=== PATIENT | female | born 1980 | race Caucasian/White ===

== ENCOUNTER 2017-06-20 14:17 | Emergency (ER) | payer MEDICAID ==
[~2017-06-20] VITALS: Ht 177.8 cm; Wt 77.0 kg
[~2017-06-20 14:17] MED LIST: AZAT50TA18 PO; COLC0.6T69 PO; DICL50TA8 PO; DIPH1TAB PO; LAMO200T2 PO; PROP10TA10 PO; ZOLP10TA PO
[2017-06-20] MEDS ORDERED: normal saline 1000ML IV soln IVB ONE (15:15)
[2017-06-20] MEDS ORDERED: ondansetron/PF 4mg/2ml inj IV ONE (15:15)
[2017-06-20] MEDS ORDERED: HYDROmorphone 1 mg/ml syringe IV PRN (15:15)
[2017-06-20] MEDS ORDERED: iohexol 300mg/ml 100ml inj. ONE (15:20)
[2017-06-20] MEDS ORDERED: clindamycin-Cleocin 900mg/D5W 50 ML IV ONE (16:15)
[2017-06-20] MEDS ORDERED: normal saline 1000ML IV soln IV ONE (16:15)
[2017-06-20] MEDS ORDERED: LIDOcaine Viscous 15ml cup MM STA (16:56)
[2017-06-20 17:03] LABS: BASOPHILS % (AUTO) 0.1 % (0-1); EOSINOPHILS # (AUTO) 0.5 X10'3 (0-0.9); EOSINOPHILS % (AUTO) 3.2 % (0-6); HEMATOCRIT 39.5 % (35.0-45.0); HEMOGLOBIN 14.1 g/dl (12.0-16.0); LYMPHOCYTES # (AUTO) 2.2 X10'3 (1.1-4.8); LYMPHOCYTES % (AUTO) 13.4 % (21-51); MEAN CORPUSCULAR HEMOGLOBIN 32.1 PG (27.0-31.0); MEAN CORPUSCULAR HGB CONC 35.7 % (33.0-36.5); MEAN CORPUSCULAR VOLUME 89.9 FL (78-98); MEAN PLATELET VOLUME 7.5 FL (7.4-10.4); MONOCYTES % (AUTO) 6.1 % (2-12); NEUTROPHILS # (AUTO) 12.4 X10'3 (1.8-7.7); NEUTROPHILS % (AUTO) 77.2 % (42-75); PLATELET COUNT 353 X10'3 (140-440); WHITE BLOOD COUNT 16.1 X10'3 (4.5-11.0)
[2017-06-20 17:25] LABS: ALANINE AMINOTRANSFERASE 20 U/L (12-78); ALBUMIN 3.9 G/DL (3.4-5.0); ALBUMIN/GLOBULIN RATIO 0.8 (1.1-1.5); ALKALINE PHOSPHATASE 76 IU/L (46-116); ANION GAP 10 (8-16); ASPARTATE AMINO TRANSFERASE 9 U/L (10-37); BILIRUBIN,TOTAL 0.4 MG/DL (0.1-1.0); BLOOD UREA NITROGEN 10 MG/DL (7-18); BUN/CREATININE RATIO 14.3 (6.6-38.0); CALCIUM 9.2 MG/DL (8.5-10.1); CHLORIDE 101 MMOL/L (99-107); GLUCOSE 94 MG/DL (70-104); POTASSIUM 3.8 MMOL/L (3.5-5.1); SODIUM 140 MMOL/L (135-145); TOTAL CARBON DIOXIDE 28.6 MMOL/L (24-32); TOTAL PROTEIN 8.5 G/DL (6.4-8.2); eGFR > 90 ML/MIN
[2017-06-20 19:08] VITALS: BP 137/90
== END 2017-06-20 19:11 | disposition short-term general hospital (02) ==
LOC: ER 14:18
DX: J03.80 Acute tonsillitis due to other specified organisms (principal); K12.2 Cellulitis and abscess of mouth; M35.2 Behcet's disease; G43.909 Migraine, unspecified, not intractable, without status migrainosus; J45.909 Unspecified asthma, uncomplicated; Z87.442 Personal history of urinary calculi; I49.9 Cardiac arrhythmia, unspecified; Z88.0 Allergy status to penicillin; Z88.2 Allergy status to sulfonamides; Z88.8 Allergy status to other drugs, medicaments and biological substances; Z88.4 Allergy status to anesthetic agent; Z88.1 Allergy status to other antibiotic agents; Z91.040 Latex allergy status
CPT/HCPCS: 36415; 70491; 80053; 83605; 84145; 85025; 87040; 96365; 96375; 96376; 99285; J2270; J2405; J3490; J7030; Q9967

== ENCOUNTER 2017-11-27 11:43 | Emergency (ER) | payer MEDICAID ==
[~2017-11-27] VITALS: Ht 170.2 cm; Wt 80.0 kg
[2017-11-27 12:11] LABS: URINE HCG NEGATIVE (NEG)
[2017-11-27 12:14] LABS: CLARITY,URINE CLEAR (Clear); COLOR,URINE YELLOW (Yellow); GLUCOSE, URINE NEGATIVE (Neg); KETONES,URINE NEGATIVE (Neg); LEUKOCYTE ESTERASE ,URINE NEGATIVE (Neg); NITRITES, URINE NEGATIVE (Neg); OCCULT BLOOD,URINE MODERATE (Neg); PH,URINE 5.5 (4.8-8.0); PROTEIN,URINE NEGATIVE (Neg); UROBILINOGEN,URINE 0.2 E.U/dL (0.2-1.0)
[2017-11-27 12:20] LABS: UA COLLECTION TYPE CLN CATCH MIDSTREAM
[2017-11-27] MEDS ORDERED: normal saline 1000ML IV soln IVB ONE (12:20)
[2017-11-27 12:21] LABS: BACTERIA,URINE FEW /HPF (Neg); RBC,URINE 0-2 /HPF (0-2); SQUAMOUS EPITHELIAL CELL,UR FEW /LPF (FEW); WBC,URINE 0-4 /HPF (0-4)
[2017-11-27 12:29] LABS: PROTHROMBIN TIME 10.2 SECONDS (9.0-12.0)
[2017-11-27 12:31] LABS: BASOPHILS % (AUTO) 0.4 % (0-1); EOSINOPHILS # (AUTO) 0.5 X10'3 (0-0.9); EOSINOPHILS % (AUTO) 5.6 % (0-6); HEMATOCRIT 41.6 % (35.0-45.0); HEMOGLOBIN 14.5 g/dl (12.0-16.0); LYMPHOCYTES # (AUTO) 1.8 X10'3 (1.1-4.8); LYMPHOCYTES % (AUTO) 22.5 % (21-51); MEAN CORPUSCULAR HEMOGLOBIN 31.7 PG (27.0-31.0); MEAN CORPUSCULAR HGB CONC 34.9 % (33.0-36.5); MEAN CORPUSCULAR VOLUME 90.7 FL (78-98); MEAN PLATELET VOLUME 8.6 FL (7.4-10.4); MONOCYTES # (AUTO) 0.6 X10'3 (0-0.9); MONOCYTES % (AUTO) 7.3 % (2-12); NEUTROPHILS # (AUTO) 5.2 X10'3 (1.8-7.7); NEUTROPHILS % (AUTO) 64.2 % (42-75); PLATELET COUNT 292 X10'3 (140-440); RED BLOOD COUNT 4.59 X10'6 (4.20-5.60); RED CELL DISTRIBUTION WIDTH 12.1 % (11.5-14.5); WHITE BLOOD COUNT 8.1 X10'3 (4.5-11.0)
[2017-11-27] MEDS ORDERED: HYDROcodone/acetaminophen 10/325mg tab PO ONE (12:35)
[2017-11-27 12:38] LABS: ALANINE AMINOTRANSFERASE 25 U/L (12-78); ALBUMIN 4.1 G/DL (3.4-5.0); ALKALINE PHOSPHATASE 68 IU/L (46-116); ANION GAP 11 (8-16); ASPARTATE AMINO TRANSFERASE 14 U/L (10-37); BILIRUBIN,TOTAL 0.3 MG/DL (0.1-1.0); BLOOD UREA NITROGEN 14 MG/DL (7-18); BUN/CREATININE RATIO 18.4 (6.6-38.0); CALCIUM 9.1 MG/DL (8.5-10.1); CHLORIDE 104 MMOL/L (99-107); CREATININE 0.76 MG/DL (0.40-0.90); GLUCOSE 125 MG/DL (70-104); POTASSIUM 3.6 MMOL/L (3.5-5.1); SODIUM 137 MMOL/L (135-145); TOTAL CARBON DIOXIDE 21.7 MMOL/L (24-32); TOTAL PROTEIN 8.3 G/DL (6.4-8.2); eGFR 87 ML/MIN
[2017-11-27] MEDS ORDERED: morphine 4 MG/ML inj SYRINge IV ONE ×2 (13:20→14:30)
[2017-11-27 13:49] VITALS: BP 123/83
[2017-11-27] MEDS ORDERED: ONDA4TAB6 PO (14:59)
[2017-11-27] MEDS ORDERED: HYDR-3965 PO (14:59)
[2017-11-27] MEDS ORDERED: LORazepam 2 mg/ml vial IV ONE (15:10)
== END 2017-11-27 15:44 | disposition home or self-care (01) ==
LOC: ER 11:43
DX: N23 Unspecified renal colic (principal); G43.909 Migraine, unspecified, not intractable, without status migrainosus; J45.909 Unspecified asthma, uncomplicated; Z88.0 Allergy status to penicillin; Z88.1 Allergy status to other antibiotic agents; Z88.2 Allergy status to sulfonamides; Z91.040 Latex allergy status; Z88.8 Allergy status to other drugs, medicaments and biological substances; Z79.899 Other long term (current) drug therapy
CPT/HCPCS: 36415; 71045; 74176; 80053; 81001; 81025; 84443; 85025; 85610; 96361; 96374; 96375; 96376; 99285; J2060; J2270; J7030

== ENCOUNTER 2018-10-30 08:39 | Emergency (ER) | payer MEDICAID ==
[~2018-10-30] VITALS: Ht 167.6 cm; Wt 82.6 kg
[~2018-10-30 08:39] MED LIST changes: +ONDA4TAB6 PO
[2018-10-30] MEDS ORDERED: HYDROcodone/acetaminophen 10/325mg tab PO ONE (09:20)
--- NOTE | 2018-10-30 09:30 | NUR ---
WHEN ASKED TO PROVIDE A URINE SAMPLE, PATIENT STATED THAT A SAMPLE MAY BE "A PROBLEM BECAUSE I HAVE NO CONTROL OVER MY BOWEL OR BLADDER" OXANA STATES THAT SHE SEES DR SUTTON AT [facility] FOR THIS PROBLEM BUT CURRENTLY HAS "NO DIAGNOSIS FOR THIS PROBELME THAT STARTED AUGUST 03, 2018. I HAVE NO SENSATION THAT IT WILL HAPPEN, IT JUST COMES OUT."
[2018-10-30 09:41] LABS: BASOPHILS % (AUTO) 0.6 % (0-1); EOSINOPHILS # (AUTO) 0.8 X10'3 (0-0.9); EOSINOPHILS % (AUTO) 12.2 % (0-6); HEMATOCRIT 37.7 % (35.0-45.0); LYMPHOCYTES # (AUTO) 1.7 X10'3 (1.1-4.8); LYMPHOCYTES % (AUTO) 25.6 % (21-51); MEAN CORPUSCULAR HEMOGLOBIN 30.2 PG (27.0-31.0); MEAN CORPUSCULAR HGB CONC 34.3 g/dL (33.0-36.5); MEAN CORPUSCULAR VOLUME 87.9 FL (78-98); MONOCYTES # (AUTO) 0.5 X10'3 (0-0.9); NEUTROPHILS # (AUTO) 3.6 X10'3 (1.8-7.7); NEUTROPHILS % (AUTO) 53.6 % (42-75); PLATELET COUNT 305 X10'3 (140-440); RED BLOOD COUNT 4.29 X10'6 (4.20-5.60); RED CELL DISTRIBUTION WIDTH 12.8 % (11.5-14.5); WHITE BLOOD COUNT 6.7 X10'3 (4.5-11.0)
[2018-10-30 10:04] LABS: ALANINE AMINOTRANSFERASE 39 U/L (12-78); ALBUMIN 3.8 G/DL (3.4-5.0); ALBUMIN/GLOBULIN RATIO 1.1 (1.1-1.5); ALKALINE PHOSPHATASE 56 IU/L (46-116); ANION GAP 11 (8-16); ASPARTATE AMINO TRANSFERASE 19 U/L (10-37); BILIRUBIN,TOTAL 0.1 MG/DL (0.1-1.0); BLOOD UREA NITROGEN 16 MG/DL (7-18); BUN/CREATININE RATIO 16.3 (6.6-38.0); CHLORIDE 109 MMOL/L (99-107); CREATININE 0.98 MG/DL (0.40-0.90); GLUCOSE 110 MG/DL (70-104); POTASSIUM 3.3 MMOL/L (3.5-5.1); SODIUM 140 MMOL/L (135-145); TOTAL CARBON DIOXIDE 19.8 MMOL/L (24-32); TOTAL PROTEIN 7.3 G/DL (6.4-8.2); eGFR 64 ML/MIN
[2018-10-30 10:16] LABS: URINE HCG NEGATIVE (NEG)
[2018-10-30 10:17] LABS: CLARITY,URINE CLEAR (Clear); COLOR,URINE YELLOW (Yellow); GLUCOSE, URINE NEGATIVE (Neg); KETONES,URINE NEGATIVE (Neg); LEUKOCYTE ESTERASE ,URINE NEGATIVE (Neg); NITRITES, URINE NEGATIVE (Neg); OCCULT BLOOD,URINE NEGATIVE (Neg); PROTEIN,URINE NEGATIVE (Neg); UROBILINOGEN,URINE 0.2 E.U/dL (0.2-1.0)
[2018-10-30 10:18] LABS: UA COLLECTION TYPE STRAIGHT CATH
[2018-10-30] MEDS ORDERED: AZIT250T83 PO (10:39)
[2018-10-30 10:49] VITALS: BP 101/61
== END 2018-10-30 10:51 | disposition home or self-care (01) ==
LOC: ER 08:41
DX: H66.91 Otitis media, unspecified, right ear (principal); M79.7 Fibromyalgia; R21 Rash and other nonspecific skin eruption; R05 Cough; G43.909 Migraine, unspecified, not intractable, without status migrainosus; I49.9 Cardiac arrhythmia, unspecified; I10 Essential (primary) hypertension; J45.909 Unspecified asthma, uncomplicated; Z87.442 Personal history of urinary calculi; Z98.890 Other specified postprocedural states; Z88.0 Allergy status to penicillin; Z88.2 Allergy status to sulfonamides; Z88.1 Allergy status to other antibiotic agents; Z88.8 Allergy status to other drugs, medicaments and biological substances; Z91.040 Latex allergy status; Z79.899 Other long term (current) drug therapy
CPT/HCPCS: 36415; 80053; 81003; 81025; 85025; 87081; 87880; 99283

== ENCOUNTER 2018-12-27 12:18 | Outpatient (CLI) | payer MEDICAID | END 2018-12-27 23:59 | disposition home or self-care (01) | LOC: RAD 12:18 | PROVIDERS: ATTEND Psychiatry & Neurology Neurology | DX: G40.209 Localization-related (focal) (partial) symptomatic epilepsy and epileptic syndromes with complex partial seizures, not intractable, without status epilepticus (principal); I10 Essential (primary) hypertension; F17.200 Nicotine dependence, unspecified, uncomplicated | CPT/HCPCS: 95816 ==

== ENCOUNTER 2019-01-17 10:22 | Emergency (ER) | payer MEDICAID ==
[~2019-01-17] VITALS: Ht 167.6 cm; Wt 81.0 kg
[2019-01-17] MEDS ORDERED: HYDROcodone/acetaminophen 5mg/325mg tablet PO ONE (12:00)
[2019-01-17 12:14] LABS: BASOPHILS % (AUTO) 0.5 % (0-1); EOSINOPHILS # (AUTO) 0.5 X10'3 (0-0.9); EOSINOPHILS % (AUTO) 6.5 % (0-6); HEMATOCRIT 39.2 % (35.0-45.0); HEMOGLOBIN 13.7 g/dl (12.0-16.0); LYMPHOCYTES # (AUTO) 2.7 X10'3 (1.1-4.8); LYMPHOCYTES % (AUTO) 33.3 % (21-51); MEAN CORPUSCULAR HEMOGLOBIN 30.6 PG (27.0-31.0); MEAN CORPUSCULAR VOLUME 87.6 FL (78-98); MEAN PLATELET VOLUME 7.9 FL (7.4-10.4); MONOCYTES # (AUTO) 0.7 X10'3 (0-0.9); MONOCYTES % (AUTO) 8.6 % (2-12); NEUTROPHILS # (AUTO) 4.1 X10'3 (1.8-7.7); NEUTROPHILS % (AUTO) 51.1 % (42-75); PLATELET COUNT 288 X10'3 (140-440); RED BLOOD COUNT 4.48 X10'6 (4.20-5.60); RED CELL DISTRIBUTION WIDTH 12.4 % (11.5-14.5); WHITE BLOOD COUNT 8.1 X10'3 (4.5-11.0)
[2019-01-17 12:26] LABS: ALANINE AMINOTRANSFERASE 31 U/L (12-78); ALBUMIN 4.1 G/DL (3.4-5.0); ALBUMIN/GLOBULIN RATIO 1.1 (1.1-1.5); ALKALINE PHOSPHATASE 58 IU/L (46-116); ANION GAP 11 (8-16); ASPARTATE AMINO TRANSFERASE 13 U/L (10-37); BILIRUBIN,TOTAL 0.3 MG/DL (0.1-1.0); BLOOD UREA NITROGEN 24 MG/DL (7-18); BUN/CREATININE RATIO 29.6 (6.6-38.0); CALCIUM 8.7 MG/DL (8.5-10.1); CHLORIDE 108 MMOL/L (99-107); CREATININE 0.81 MG/DL (0.40-0.90); GLUCOSE 98 MG/DL (70-104); LIPASE 111 U/L (73-393); POTASSIUM 3.6 MMOL/L (3.5-5.1); SODIUM 140 MMOL/L (135-145); TOTAL CARBON DIOXIDE 20.9 MMOL/L (24-32); TOTAL PROTEIN 7.8 G/DL (6.4-8.2); eGFR 80 ML/MIN
[2019-01-17 12:50] LABS: URINE HCG NEGATIVE (NEG)
[2019-01-17 12:51] LABS: CLARITY,URINE CLEAR (Clear); COLOR,URINE YELLOW (Yellow); GLUCOSE, URINE NEGATIVE (Neg); KETONES,URINE TRACE mg/dl (Neg); LEUKOCYTE ESTERASE ,URINE NEGATIVE (Neg); NITRITES, URINE NEGATIVE (Neg); OCCULT BLOOD,URINE TRACE-INTACT (Neg); PROTEIN,URINE NEGATIVE (Neg); UA COLLECTION TYPE CLN CATCH MIDSTREAM; UROBILINOGEN,URINE 0.2 E.U/dL (0.2-1.0)
[2019-01-17 12:56] LABS: HYALINE CASTS 0-3 /LPF (NEGATIVE); MUCUS STRANDS FEW /LPF (Neg); SQUAMOUS EPITHELIAL CELL,UR MODERATE /LPF (FEW)
[2019-01-17 12:57] LABS: BACTERIA,URINE 1+ /HPF (Neg); RBC,URINE 0-2 /HPF (0-2); WBC,URINE 0-4 /HPF (0-4)
[2019-01-17] MEDS ORDERED: iohexol 300mg/ml 100ml inj. ONE (13:46)
[2019-01-17] MEDS ORDERED: ketorolac trometh inj. 60 MG/2 ML VIAL IM ONE (15:10)
[2019-01-17] MEDS ORDERED: ketorolac tromethamine 15mg/ml inj. IV ONE (15:30)
[2019-01-17 16:06] VITALS: BP 135/84
== END 2019-01-17 16:06 | disposition home or self-care (01) ==
LOC: ER 10:23
DX: K62.5 Hemorrhage of anus and rectum (principal); G43.909 Migraine, unspecified, not intractable, without status migrainosus; I10 Essential (primary) hypertension; J45.909 Unspecified asthma, uncomplicated; M79.7 Fibromyalgia; R06.02 Shortness of breath; Z87.442 Personal history of urinary calculi; Z98.890 Other specified postprocedural states; Z88.0 Allergy status to penicillin; Z88.1 Allergy status to other antibiotic agents; Z88.2 Allergy status to sulfonamides; Z91.040 Latex allergy status; Z79.899 Other long term (current) drug therapy
CPT/HCPCS: 36415; 74177; 80053; 81001; 81025; 83690; 83735; 85025; 99284; J1885; Q9967

== ENCOUNTER 2019-07-08 09:17 | Day surgery (SDC) | payer MEDICAID ==
[2019-07-08] VITALS (8 sets, daily range): BP systolic 98–124; BP diastolic 61–84
[~2019-07-08] VITALS: Ht 170.2 cm; Wt 83.4 kg
[2019-07-08] MEDS ORDERED: normal saline 1,000 ML IV SCH (09:40)
[2019-07-08] MEDS ORDERED: diphenhydrAMINE 25mg capsule PO PRN (09:40)
[2019-07-08] MEDS ORDERED: ASPI-611 PO (10:06)
[2019-07-08] MEDS ORDERED: TOPI200T PO (10:06)
[2019-07-08] MEDS ORDERED: PREG50CA PO (10:07)
[2019-07-08] MEDS ORDERED: PRAZ2CAP2 PO (10:07)
[2019-07-08] MEDS ORDERED: LISI10TA4 PO (10:07)
[2019-07-08] MEDS ORDERED: NITR0.4T SL (10:07)
[2019-07-08] MEDS ORDERED: DIVA500T9 PO (10:07)
[2019-07-08] MEDS ORDERED: LORA10CA PO (10:07)
[2019-07-08] MEDS ORDERED: QUET200T PO (10:07)
[2019-07-08] MEDS ORDERED: CHOL500061 PO (10:07)
[2019-07-08] MEDS ORDERED: LIDOcaine 1% (10mg/ml)w/preservative injection 20ml MDV ONE (10:29)
[2019-07-08] MEDS ORDERED: heparin 1,000unit/ml 10ml vial 10 ML ONE (10:29)
[2019-07-08] MEDS ORDERED: fentaNYL/PF 50MCG/1 ML 2ML syringe ONE (10:29)
[2019-07-08] MEDS ORDERED: verapamil 2.5 mg/ml inj IV ONE (10:29)
[2019-07-08] MEDS ORDERED: iohexol 350 MG/ML 50ML vial IV ONE (10:29)
[2019-07-08] MEDS ORDERED: nitroGLYCERIN-Tridil 50MG/D5W 250 ML IV ONE (10:29)
[2019-07-08] MEDS ORDERED: midazolam 2 mg/2 ml injection ONE ×4 (10:29→11:14)
[2019-07-08] MEDS ORDERED: iohexol 350MG/ML 100ml bottle IV ONE (10:30)
[2019-07-08 10:40] LABS: BASOPHILS # (AUTO) 0.1 X10'3 (0-0.2); EOSINOPHILS # (AUTO) 0.6 X10'3 (0-0.9); EOSINOPHILS % (AUTO) 5.9 % (0-6); HEMATOCRIT 43.2 % (35.0-45.0); HEMOGLOBIN 15.1 g/dl (12.0-16.0); LYMPHOCYTES # (AUTO) 2.7 X10'3 (1.1-4.8); LYMPHOCYTES % (AUTO) 28.2 % (21-51); MEAN CORPUSCULAR HEMOGLOBIN 31.6 PG (27.0-31.0); MEAN CORPUSCULAR HGB CONC 34.9 g/dL (33.0-36.5); MEAN CORPUSCULAR VOLUME 90.4 FL (78-98); MEAN PLATELET VOLUME 8.9 FL (7.4-10.4); MONOCYTES # (AUTO) 0.5 X10'3 (0-0.9); MONOCYTES % (AUTO) 5.6 % (2-12); NEUTROPHILS # (AUTO) 5.7 X10'3 (1.8-7.7); NEUTROPHILS % (AUTO) 59.3 % (42-75); PLATELET COUNT 340 X10'3 (140-440); RED BLOOD COUNT 4.78 X10'6 (4.20-5.60); RED CELL DISTRIBUTION WIDTH 13.5 % (11.5-14.5); WHITE BLOOD COUNT 9.7 X10'3 (4.5-11.0)
[2019-07-08 10:52] LABS: ALBUMIN 4.6 G/DL (3.4-5.0); ANION GAP 14 (8-16); BLOOD UREA NITROGEN 14 MG/DL (7-18); BUN/CREATININE RATIO 17.9 (6.6-38.0); CALCIUM 9.2 MG/DL (8.5-10.1); CHLORIDE 109 MMOL/L (99-107); CREATININE 0.78 MG/DL (0.40-0.90); GLUCOSE 114 MG/DL (70-104); POTASSIUM 3.4 MMOL/L (3.5-5.1); SODIUM 143 MMOL/L (135-145); TOTAL CARBON DIOXIDE 20.2 MMOL/L (24-32); eGFR 83 ML/MIN
[2019-07-08] MEDS ORDERED: proCHLORperazine 10 MG/2 ml inj ONE (10:58)
[2019-07-08] MEDS ORDERED: HYDROmorphone 1 mg/ml syringe ONE (11:03)
[2019-07-08] MEDS ORDERED: HYDROcodone/acetaminophen 5mg/325mg tablet PO PRN (11:55)
[2019-07-08] MEDS ORDERED: ketorolac tromethamine 15mg/ml inj. IV ONE (11:55)
[2019-07-08] MEDS ORDERED: normal saline 1000ml 1,000 ML IV SCH (11:55)
[2019-07-08] MEDS ORDERED: HYDROcodone/acetaminophen 10/325mg tab PO PRN (11:55)
== END 2019-07-08 15:00 | disposition home or self-care (01) ==
LOC: SSTAY O 09:17
PROVIDERS: ATTEND Internal Medicine Cardiovascular Disease
DX: R94.39 Abnormal result of other cardiovascular function study (principal); G40.909 Epilepsy, unspecified, not intractable, without status epilepticus; Z79.01 Long term (current) use of anticoagulants; Z79.899 Other long term (current) drug therapy
CPT/HCPCS: 36415; 80048; 83735; 85025; 85610; 93005; 93454; 99152; 99153; J0780; J1170; J1644; J1885; J2001; J2250; J3010; J7030; Q0163; Q9967; A4620; J3490

== ENCOUNTER 2019-07-31 07:29 | Emergency (ER) | payer MEDICAID ==
[~2019-07-31] VITALS: Ht 167.6 cm; Wt 83.4 kg
[~2019-07-31 07:29] MED LIST changes: +ASPI-611 PO; -AZAT50TA18 PO; +CHOL500061 PO; -COLC0.6T69 PO; -DIPH1TAB PO; +DIVA500T9 PO; -LAMO200T2 PO; +LISI10TA4 PO; +LORA10CA PO; +NITR0.4T SL; -ONDA4TAB6 PO; +PRAZ2CAP2 PO; +PREG50CA PO; +QUET200T PO; +TOPI200T PO
--- NOTE | 2019-07-31 08:06 | NUR ---
PT AMBULATORY TO XRAY WITH TECH NOW PER ORDERS. WILL OBTAIN FLU SWAB SAMPLE UPON PT RETURN TO BED 16
--- NOTE | 2019-07-31 08:50 | NUR ---
DR NSAH NOTIFIED OF PT PAIN AND REQUEST OF PAIN MEDICATION
[2019-07-31] MEDS ORDERED: dexamethasone sod phosphate 10mg/ml inj IV STA (08:57)
[2019-07-31] MEDS ORDERED: ketorolac tromethamine 15mg/ml inj. IV ONE (09:00)
[2019-07-31] MEDS ORDERED: albuterol 2.5 MG/3 ML nebule NEB ONE (09:00)
[2019-07-31] MEDS ORDERED: ALB0.5UD IH (10:12)
[2019-07-31] MEDS ORDERED: NAPR-56 PO (10:17)
[2019-07-31 10:31] VITALS: BP 109/60
== END 2019-07-31 10:34 | disposition home or self-care (01) ==
LOC: ER 07:29
DX: B34.9 Viral infection, unspecified (principal); R05 Cough; R50.9 Fever, unspecified; R09.81 Nasal congestion; G89.29 Other chronic pain; M54.9 Dorsalgia, unspecified; I10 Essential (primary) hypertension; J45.909 Unspecified asthma, uncomplicated; Z98.890 Other specified postprocedural states; Z88.0 Allergy status to penicillin; Z88.1 Allergy status to other antibiotic agents; Z88.2 Allergy status to sulfonamides; Z91.040 Latex allergy status; Z88.8 Allergy status to other drugs, medicaments and biological substances; Z79.82 Long term (current) use of aspirin; Z79.899 Other long term (current) drug therapy
CPT/HCPCS: 71046; 87502; 87503; 94640; 96374; 96375; 99284; J1100; J1885; 94760

== ENCOUNTER 2020-03-05 05:45 | Inpatient (IN) | payer MEDICAID ==
[2020-02-27 15:46] LABS: BASOPHILS % (AUTO) 0.5 % (0-1); EOSINOPHILS # (AUTO) 0.7 X10'3 (0-0.9); EOSINOPHILS % (AUTO) 7.2 % (0-6); LYMPHOCYTES # (AUTO) 3.1 X10'3 (1.1-4.8); MEAN CORPUSCULAR HEMOGLOBIN 33.3 PG (27.0-31.0); MEAN CORPUSCULAR HGB CONC 35.1 g/dL (33.0-36.5); MEAN CORPUSCULAR VOLUME 94.8 FL (78-98); MEAN PLATELET VOLUME 8.9 FL (7.4-10.4); MONOCYTES # (AUTO) 0.8 X10'3 (0-0.9); MONOCYTES % (AUTO) 8.6 % (2-12); NEUTROPHILS % (AUTO) 51.7 % (42-75); PRE OP HEMATOCRIT 41.9 % (35.0-45.0); PRE OP HEMOGLOBIN 14.7 g/dL (12.0-16.0); PRE OP PLATELET COUNT 290 X10'3 (140-440); RED BLOOD COUNT 4.42 X10'6 (4.20-5.60); RED CELL DISTRIBUTION WIDTH 12.4 % (11.5-14.5)
[2020-02-27 16:01] LABS: ALBUMIN 4.3 G/DL (3.4-5.0); ALKALINE PHOSPHATASE 68 IU/L (46-116); BLOOD UREA NITROGEN 10 MG/DL (7-18); BUN/CREATININE RATIO 14.1 (6.6-38.0); CALCIUM 9.1 MG/DL (8.5-10.1); CHLORIDE 103 MMOL/L (99-107); CREATININE 0.71 MG/DL (0.40-0.90); PRE OP ALT 43 U/L (30-65); PRE OP ANION GAP 11 (8-16); PRE OP AST 15 U/L (10-37); PRE OP BILIRUB, TOTAL 0.3 MG/DL (0.0-1.0); PRE OP GLUCOSE 85 MG/DL (70-104); PRE OP SODIUM 138 MMOL/L (135-145); TOTAL PROTEIN 8.7 G/DL (6.4-8.2); eGFR > 90 ML/MIN
[2020-02-27 16:03] LABS: PRE OP POTASSIUM 3.2 MMOL/L (3.4-5.1)
[2020-03-05] VITALS (18 sets, daily range): BP systolic 100–126; BP diastolic 57–87
[~2020-03-05] VITALS: Ht 167.6 cm; Wt 85.0 kg
[~2020-03-05 05:45] MED LIST changes: -ASPI-611 PO; -CHOL500061 PO; +CYCL-1 PO; -DICL50TA8 PO; +DOCUMENT DATE & TIME OF BETA-BLOCKER PO ONE; -LORA10CA PO; -PRAZ2CAP2 PO; -PROP10TA10 PO; +PROP40TA72 PO; +SERT50TA10 PO; +TRAZ-256 PO; +clindamycin-Cleocin 900mg/D5W 50 ML IV ONE; +famotidine 20mg tablet PO ONE; +ringers solution, lacted 1,000 ML IV SCH
[2020-03-05 06:25] LABS: ISTAT ANION GAP 13 (8-12); ISTAT BUN 15 mg/dL (6-19); ISTAT CL 110 mmol/L (99-107); ISTAT CREATININE 0.5 mg/dL (0.6-1.1); ISTAT GLUCOSE 138 mg/dL (70-104); ISTAT HGB 13.3 g/dl (12.0-16.0); ISTAT Hct 39 %PCV (35-48); ISTAT IONIZED CALCIUM 1.32 mmol/L (1.03-1.32); ISTAT K 3.4 mmol/L (3.5-5.1); ISTAT NA 140 mmol/L (135-145); ISTAT TOTAL CO2 17 mmol/L (24-32); ISTAT eGFR > 90 ML/MIN
[2020-03-05] MEDS ORDERED: BUPIVAcaine 0.25% w/Epi /PF 30ml vial ONE (06:54)
[2020-03-05] MEDS ORDERED: BUPIVACAINE liposomal/PF 13.3 MG/ML vial IM ONE ×2 (06:54→09:52)
[2020-03-05] MEDS ORDERED: PROP10TA10 PO (06:55)
[2020-03-05] MEDS ORDERED: divalproex 250mg tablet, delayed-release PO ONE (07:05)
[2020-03-05] MEDS ORDERED: midazolam 2 mg/2 ml injection ONE (07:29)
[2020-03-05] MEDS ORDERED: tranexamic acid 100mg/ml inj. ONE (07:29)
[2020-03-05] MEDS ORDERED: fentaNYL /PF 50mcg/ml 5ml ampule ONE (07:29)
[2020-03-05] MEDS ORDERED: bupivacaine 0.25%/epinephrine 1:200,000 inj (contains preserv. MDV) IJ ONE ×2 (08:52→10:50)
[2020-03-05] MEDS ORDERED: HYDROmorphone inj. 0.5 MG/0.5 ML DISP.SYRIN IV PRN (09:15)
[2020-03-05] MEDS ORDERED: morphine 2 MG/ML inj. syringe IV PRN (09:15)
[2020-03-05] MEDS ORDERED: morphine 4 MG/ML inj SYRINge IV PRN (09:15)
[2020-03-05] MEDS ORDERED: ringers solution, lacted 1,000 ML IV SCH (09:15)
[2020-03-05] MEDS ORDERED: ondansetron/PF 4mg/2ml inj IV PRN ×2 (09:15→11:15)
[2020-03-05] MEDS ORDERED: LIDOcaine 2% (20mg/ml) 5ml vial ONE (09:17)
[2020-03-05] MEDS ORDERED: neostigmine methylsulfate 1 MG/ML 10ml vial ONE (09:17)
[2020-03-05] MEDS ORDERED: ondansetron/PF 4mg/2ml inj ONE (09:17)
[2020-03-05] MEDS ORDERED: glycopyrrolate 0.2mg/ml inj ONE (09:17)
[2020-03-05] MEDS ORDERED: propofol inj 20 ML IV ONE (09:17)
[2020-03-05] MEDS ORDERED: dexamethasone sod phosphate 4mg/ml inj. ONE (09:17)
[2020-03-05] MEDS ORDERED: rocuronium 10mg/ml inj IV ONE (09:17)
[2020-03-05] MEDS ORDERED: triamcinolone acetonide 40mg/ml inj ONE (09:56)
--- NOTE | 2020-03-05 10:59 | NUR ---
Received from OR via , accompanied by Anesthesiologist DR KELLOGG and report given by Anesthesiolgist. AWAKENS TO VOICE. VITALS STABLE. DRESSING DI. STATES MODERATE DISCOMFORT TO LWR BACK AND LLE. HEMOVAC WITH SM AMNT SEROSANG IN CHAMBER.
[2020-03-05] MEDS: HYDROmorphone inj. 0.5 MG/0.5 ML DISP.SYRIN IV PRN ×4 (11:12→22:06)
--- NOTE | 2020-03-05 11:59 | NUR ---
Report called to receiving nurse. Transferred via BED Belongings . Special Issues communicated to receiving nurse. AWAKE AND ORIENTED. VITALS STABLE. DRESSING DI. STATES PAIN IMPROVING. CSM INTACT. TO ORTHO RM [id number] AT THIS TIME.
[2020-03-05] MEDS ORDERED: nitroGLYCERIN 0.4mg SUBLingual tab SL PRN (12:05)
[2020-03-05] MEDS ORDERED: zolpidem 5mg tablet PO SCH (12:05)
[2020-03-05] MEDS ORDERED: HYDROcodone/acetaminophen 10/325mg tab PO PRN (14:15)
[2020-03-05] MEDS: clindamycin 600mg/D5W 50ml 50 ML IV SCH ×2 (14:42→20:19)
--- NOTE | 2020-03-05 18:30 | NUR ---
Patient in room ORTHO 4015. I have received report from Kenya CASTRO and had the opportunity to ask questions and assume patient care.
--- NOTE | 2020-03-05 18:33 | NUR ---
Problems reprioritized. Patient report given, questions answered & plan of care reviewed with MATTHEW MYERS.
[2020-03-05] MEDS: HYDROcodone/acetaminophen 10/325mg tab PO PRN (20:17)
[2020-03-05] MEDS: topiramate 100mg tablet PO SCH (20:20)
[2020-03-05] MEDS: potassium CL 20mEq in D5-1/2NS 1,000 ML IV SCH ×2 (20:28→23:45)
[2020-03-05] MEDS ORDERED: cyclobenzaprine 10mg tablet PO SCH (21:00)
[2020-03-05] MEDS ORDERED: propranolol 10mg tablet PO SCH (21:00)
[2020-03-05] MEDS ORDERED: traZODone 50mg tablet PO SCH (21:00)
[2020-03-05] MEDS ORDERED: quetiapine 100mg tablet PO SCH (21:00)
--- NOTE | 2020-03-05 21:30 | NUR ---
Patient unable to void while laying down. Patient has to have a lumbar brace when up but has not been fitted yet so unable to get patient up. There is a protocol B Aguilar order for immobilization. No Aguilar is placed at this time but the order is still in process. States to pull the Aguilar cath post op day 1. Patient is very uncomfortable and bladder scanned 700ml. I placed Aguilar cath, draining pale urine now.
[2020-03-06] MEDS: HYDROcodone/acetaminophen 10/325mg tab PO PRN ×2 (01:58→12:22)
[2020-03-06] MEDS: clindamycin 600mg/D5W 50ml 50 ML IV SCH (01:59)
[2020-03-06 02:00] VITALS: BP 116/70
[2020-03-06] MEDS: HYDROmorphone inj. 0.5 MG/0.5 ML DISP.SYRIN IV PRN ×3 (04:09→14:10)
[2020-03-06] MEDS ORDERED: HYDROcodone/acetaminophen 10/325mg tab PO PRN ×2 (05:00)
[2020-03-06] MEDS ORDERED: magnesium hydroxide 30ml (MOM) UD suspension PO PRN (05:00)
--- NOTE | 2020-03-06 05:39 | NUR ---
Patient does not want cornell taken out till brings in back brace. Patient is calling now to get him to bring in her lumbar brace this am before he goes to work. Explained the reason to get the cornell cath out but patient refusing to have it taken out at this time.
[2020-03-06 06:00] VITALS: BP 109/64
--- NOTE | 2020-03-06 06:40 | NUR ---
Problems reprioritized. Patient report given, questions answered & plan of care reviewed with Margot CASTRO.
--- NOTE | 2020-03-06 06:48 | NUR ---
Patient in room ORTHO 4015. I have received report from MATTHEW Torres and had the opportunity to ask questions and assume patient care.
[2020-03-06] MEDS: topiramate 100mg tablet PO SCH (07:57)
[2020-03-06] MEDS ORDERED: lisinopril 10 MG tablet PO SCH (08:00)
[2020-03-06] MEDS ORDERED: sertraline 25mg tablet PO SCH (08:00)
[2020-03-06] MEDS ORDERED: docusate sod 100mg capsule PO SCH (08:00)
[2020-03-06] MEDS ORDERED: divalproex sod 250mg ER (24-hour) tablet PO SCH (08:00)
[2020-03-06] MEDS ORDERED: pregabalin 75mg capsule PO SCH (08:00)
--- NOTE | 2020-03-06 09:57 | NUR ---
FC DC'd at 0950. Pt tolerated well. Instructed to attempt to void Q1-2 hours. Pt currently up to bathroom to attempt to void. Will continue to monitor.
[2020-03-06 11:00] VITALS: BP 105/59
--- NOTE | 2020-03-06 12:40 | NUR ---
Dr Chu notified regarding clotting in hemovac drain, states that it is normal and nothing to be concerned with. Stated to DC drain as planned and follow up as directed. Will continue to monitor.
--- NOTE | 2020-03-06 14:40 | NUR ---
Pt discharged to home with all belongings, in personal vehicle, accompanied by . Discharge instructions and medications reviewed. Pt instructed to follow up with Dr Chu as scheduled, and to watch for any neurological changes or signs of infections. Hemovac drain to lower back DC'd, cannula intact. Pt tolerated well. Covered with optifoam. IV DC'd, cannula intact. Pt escorted to front lobby via wheelchair by student RN and primary RN.
== END 2020-03-06 14:50 | disposition home or self-care (01) | DRG 310 ==
LOC: PAS 05:45 → ORTHO 4S 11:13
PROVIDERS: ADMIT Orthopaedic Surgery; ATTEND Orthopaedic Surgery
PROC: 00NY0ZZ Release Lumbar Spinal Cord, Open Approach (ICD-10-PCS; principal; 2020-03-05 07:30)
DX: M54.16 Radiculopathy, lumbar region (principal); M35.2 Behcet's disease; M79.7 Fibromyalgia; Z79.899 Other long term (current) drug therapy; Z20.828 Contact with and (suspected) exposure to other viral communicable diseases
CPT/HCPCS: 36415; 72100; 76000; 80047; 80053; 85025; 85610; 85730; 87635; 97116; 97161; A4215; A4618; A6449; A7000; C1758; C9290; G0378; J1100; J1170; J2001; J2250; J2405; J2704; J2710; J3010; J3301; J3480; J3490; J7030; J7050; J7120

== ENCOUNTER 2020-12-15 10:17 | Outpatient (CLI) | payer MEDICAID ==
[~2020-12-15 10:17] MED LIST changes: -DOCUMENT DATE & TIME OF BETA-BLOCKER PO ONE; +LISI10TA27 PO; -LISI10TA4 PO; +PROP10TA10 PO; -PROP40TA72 PO; +SERT-433 PO; -SERT50TA10 PO; -clindamycin-Cleocin 900mg/D5W 50 ML IV ONE; -famotidine 20mg tablet PO ONE; -ringers solution, lacted 1,000 ML IV SCH
== END 2020-12-15 23:59 | disposition home or self-care (01) ==
LOC: RAD 10:17
PROVIDERS: ATTEND Psychiatry & Neurology Neurology
DX: G40.209 Localization-related (focal) (partial) symptomatic epilepsy and epileptic syndromes with complex partial seizures, not intractable, without status epilepticus (principal)
CPT/HCPCS: 95816

== ENCOUNTER 2022-05-13 06:55 | Day surgery (SDC) | payer MEDICAID ==
[~2022-05-13] VITALS: Ht 167.6 cm; Wt 94.2 kg
[2022-05-13] VITALS (9 sets, daily range): BP systolic 89–111; BP diastolic 52–66
[2022-05-13] MEDS ORDERED: normal saline 1,000 ML IV SCH (07:20)
[2022-05-13] MEDS ORDERED: diphenhydrAMINE 25mg capsule PO PRN (07:20)
[2022-05-13] MEDS ORDERED: POTA-82 PO (07:28)
[2022-05-13] MEDS ORDERED: PROP20TA6 PO (07:28)
[2022-05-13] MEDS ORDERED: FURO40TA4 PO (07:28)
[2022-05-13] MEDS ORDERED: BUPR1PAT23 TOP (07:28)
[2022-05-13] MEDS ORDERED: TOP100T (07:28)
[2022-05-13] MEDS ORDERED: EREN70AU SQ (07:52)
[2022-05-13] MEDS ORDERED: COLC0.6T72 PO (07:52)
[2022-05-13] MEDS ORDERED: PRAZ5CAP2 (07:52)
[2022-05-13] MEDS ORDERED: AZAT50TA18 (07:52)
[2022-05-13] MEDS ORDERED: APRE1TAB3 (07:52)
[2022-05-13] MEDS ORDERED: FURO20TA4 PO (07:52)
[2022-05-13] MEDS ORDERED: AZAT50TA18 PO (07:52)
[2022-05-13] MEDS ORDERED: PANT40TA54 PO (07:52)
[2022-05-13] MEDS ORDERED: TRAZ150T78 PO (07:52)
[2022-05-13] MEDS ORDERED: ERGO500093 PO (07:52)
[2022-05-13] MEDS ORDERED: SERT-434 PO (07:52)
[2022-05-13] MEDS ORDERED: APRE30TA2 PO (07:52)
[2022-05-13] MEDS ORDERED: PIOG15TA67 PO (07:52)
[2022-05-13] MEDS ORDERED: PRAZ2CAP2 PO (07:52)
[2022-05-13] MEDS ORDERED: BUPR1PAT3 (07:52)
[2022-05-13 08:07] LABS: BASOPHILS # (AUTO) 0.1 X10'3 (0-0.2); EOSINOPHILS # (AUTO) 0.7 X10'3 (0-0.9); EOSINOPHILS % (AUTO) 10.8 % (0-6); HEMATOCRIT 45.3 % (35.0-45.0); HEMOGLOBIN 15.6 g/dl (12.0-16.0); LYMPHOCYTES # (AUTO) 3.1 X10'3 (1.1-4.8); LYMPHOCYTES % (AUTO) 44.8 % (21-51); MEAN CORPUSCULAR HEMOGLOBIN 30.6 PG (27.0-31.0); MEAN CORPUSCULAR HGB CONC 34.4 g/dL (33.0-36.5); MEAN CORPUSCULAR VOLUME 88.8 FL (78-98); MEAN PLATELET VOLUME 8.3 FL (7.4-10.4); MONOCYTES # (AUTO) 0.5 X10'3 (0-0.9); MONOCYTES % (AUTO) 6.7 % (2-12); NEUTROPHILS # (AUTO) 2.5 X10'3 (1.8-7.7); NEUTROPHILS % (AUTO) 36.7 % (42-75); PLATELET COUNT 305 X10'3 (140-440); RED CELL DISTRIBUTION WIDTH 12.7 % (11.5-14.5); WHITE BLOOD COUNT 6.9 X10'3 (4.5-11.0)
[2022-05-13 08:22] LABS: ALBUMIN 4.7 G/DL (3.4-5.0); ANION GAP 14 (8-16); BLOOD UREA NITROGEN 21 MG/DL (7-18); BUN/CREATININE RATIO 21.9 (6.6-38.0); CALCIUM 9.8 MG/DL (8.5-10.1); CHLORIDE 98 MMOL/L (99-107); CREATININE 0.96 MG/DL (0.40-0.90); GLUCOSE 150 MG/DL (70-104); MAGNESIUM 2.2 MG/DL (1.5-2.4); POTASSIUM 3.6 MMOL/L (3.5-5.1); SODIUM 136 MMOL/L (135-145); TOTAL CARBON DIOXIDE 23.8 MMOL/L (24-32); eGFR 64 ML/MIN
[2022-05-13] MEDS ORDERED: fentaNYL/PF 50MCG/1 ML 2ML syringe ONE (08:48)
[2022-05-13] MEDS ORDERED: midazolam 1 mg/ML 2ml injection ONE ×2 (08:48→09:40)
[2022-05-13] MEDS ORDERED: verapamil 2.5 mg/ml inj IV ONE (08:48)
[2022-05-13] MEDS ORDERED: nitroGLYCERIN-Tridil 50MG/D5W 0 ML IV ONE (08:48)
[2022-05-13] MEDS ORDERED: heparin 1,000unit/ml 10ml vial 10 ML ONE (08:49)
[2022-05-13] MEDS ORDERED: LIDOcaine 1% (10mg/ml) 2ml vial ONE (08:49)
[2022-05-13] MEDS ORDERED: iohexol 350MG/ML 100ml bottle IV ONE (08:49)
[2022-05-13] MEDS ORDERED: LIDOcaine 1% 30ml preserv. free vial ONE (09:26)
[2022-05-13] MEDS ORDERED: mag hydrox/Alum hydrox/simeth 30ml oral suspension PO ONE (10:30)
[2022-05-13] MEDS ORDERED: normal saline 1000ml 1,000 ML IV SCH (10:35)
[2022-05-13] MEDS ORDERED: ondansetron/PF 4mg/2ml inj IV PRN (10:35)
[2022-05-13] MEDS ORDERED: HYDROcodone/acetaminophen 10/325mg tab PO PRN (10:35)
[2022-05-13] MEDS ORDERED: proCHLORperazine 10 MG/2 ml inj IV PRN (10:35)
[2022-05-13] MEDS ORDERED: HYDROcodone/acetaminophen 5mg/325mg tablet PO PRN (10:35)
== END 2022-05-13 13:30 | disposition home or self-care (01) ==
LOC: SSTAY O 06:55
PROVIDERS: ATTEND Internal Medicine Cardiovascular Disease
DX: R07.89 Other chest pain (principal); I10 Essential (primary) hypertension; E11.9 Type 2 diabetes mellitus without complications; M79.7 Fibromyalgia; F17.200 Nicotine dependence, unspecified, uncomplicated; Z88.1 Allergy status to other antibiotic agents; Z88.0 Allergy status to penicillin; Z88.2 Allergy status to sulfonamides; Z88.5 Allergy status to narcotic agent; Z91.040 Latex allergy status; Z98.890 Other specified postprocedural states; Z90.89 Acquired absence of other organs; Z83.3 Family history of diabetes mellitus; Z82.49 Family history of ischemic heart disease and other diseases of the circulatory system; Z79.84 Long term (current) use of oral hypoglycemic drugs; Z79.899 Other long term (current) drug therapy; Z98.891 History of uterine scar from previous surgery
CPT/HCPCS: 36415; 80048; 82948; 83735; 85025; 85610; 93005; 93458; 99152; 99153; C1760; C1769; C1894; J1644; J2250; J3010; J3490; J7030; Q9967

== ENCOUNTER 2023-03-14 08:05 | Emergency (ER) | payer MEDICAID ==
[~2023-03-14] VITALS: Ht 170.2 cm; Wt 100.0 kg
[~2023-03-14 08:05] MED LIST changes: +APRE30TA5 PO; +AZAT50TA18 PO; +BUPR1PAT23 TOP; +COLC0.6T72 PO; +EREN70AU SQ; +ERGO500093 PO; +FURO40TA4 PO; -NITR0.4T SL; +PANT40TA54 PO; +PIOG15TA67 PO; +POTA-366 PO; +PRAZ2CAP2 PO; +PRAZ5CAP2; +PROP20TA6 PO; -TRAZ-256 PO; +TRAZ150T78 PO; -ZOLP10TA PO
[2023-03-14 09:07] LABS: BASOPHILS # (AUTO) 0.1 X10'3 (0-0.2); BASOPHILS % (AUTO) 1.3 % (0-1); EOSINOPHILS # (AUTO) 0.9 X10'3 (0-0.9); EOSINOPHILS % (AUTO) 10.5 % (0-6); HEMATOCRIT 41.6 % (35.0-45.0); HEMOGLOBIN 14.2 g/dl (12.0-16.0); LYMPHOCYTES # (AUTO) 3.2 X10'3 (1.1-4.8); LYMPHOCYTES % (AUTO) 39.6 % (21-51); MEAN CORPUSCULAR HEMOGLOBIN 31.5 PG (27.0-31.0); MEAN CORPUSCULAR VOLUME 92.7 FL (78-98); MEAN PLATELET VOLUME 8.3 FL (7.4-10.4); MONOCYTES # (AUTO) 0.5 X10'3 (0-0.9); MONOCYTES % (AUTO) 5.8 % (2-12); NEUTROPHILS # (AUTO) 3.5 X10'3 (1.8-7.7); NEUTROPHILS % (AUTO) 42.8 % (42-75); PLATELET COUNT 250 X10'3 (140-440); RED BLOOD COUNT 4.49 X10'6 (4.20-5.60); RED CELL DISTRIBUTION WIDTH 14.1 % (11.5-14.5); WHITE BLOOD COUNT 8.2 X10'3 (4.5-11.0)
[2023-03-14 09:32] LABS: ALANINE AMINOTRANSFERASE 26 U/L (12-78); ALBUMIN 3.9 G/DL (3.4-5.0); ALKALINE PHOSPHATASE 48 IU/L (46-116); ANION GAP 12 (8-16); ASPARTATE AMINO TRANSFERASE 16 U/L (10-37); BILIRUBIN,TOTAL 0.3 MG/DL (0.1-1.0); BLOOD UREA NITROGEN 17 MG/DL (7-18); BUN/CREATININE RATIO 17.7 (10.0-20.0); CALCIUM 9.1 MG/DL (8.5-10.1); CHLORIDE 105 MMOL/L (99-107); CREATININE 0.96 MG/DL (0.40-0.90); GLUCOSE 179 MG/DL (70-104); POTASSIUM 3.8 MMOL/L (3.5-5.1); SODIUM 137 MMOL/L (135-145); eCRCL 76 ML/MIN; eGFR 64 ML/MIN
[2023-03-14] MEDS ORDERED: morphine 4 MG/ML inj SYRINge IV ONE (12:00)
[2023-03-14] MEDS ORDERED: ondansetron 4mg rapidly disintigrating tab PO ONE (12:00)
[2023-03-14] MEDS ORDERED: ringers solution, lacted 1,000 ML IV ONE (12:00)
[2023-03-14] MEDS ORDERED: fentaNYL/PF 50MCG/1 ML 2ML syringe IV ONE ×2 (12:15→14:00)
[2023-03-14 13:18] LABS: HCG SERUM QL NEGATIVE
[2023-03-14] MEDS ORDERED: iohexol 300mg/ml 100ml inj. ONE (13:29)
--- NOTE | 2023-03-14 13:42 | NUR ---
to ct scan.
--- NOTE | 2023-03-14 13:45 | NUR ---
pt back from ct scan.
--- NOTE | 2023-03-14 13:56 | NUR ---
NOTIFIED MD THAT PT IS STILL C/O 03/07 ABD PAIN ,VERBAL ORDERS TO GIVE FENTNYL 25 MCG IV ONCE.
[2023-03-14] MEDS ORDERED: CIPR-259 PO (16:17)
[2023-03-14] MEDS ORDERED: HYDR-3965 PO (16:17)
[2023-03-14] MEDS ORDERED: ONDA4TAB12 PO (16:17)
[2023-03-14 16:38] VITALS: BP 103/65; PULSE 66; RESP 17; TEMP 98; O2SAT 99
== END 2023-03-14 16:51 | disposition home or self-care (01) ==
LOC: ER 08:05
DX: K52.9 Noninfective gastroenteritis and colitis, unspecified (principal)
CPT/HCPCS: 36415; 74177; 80053; 83605; 84703; 85025; 96374; 96376; 99285; J3010; J3490; J7120; Q9967

== ENCOUNTER 2023-09-19 10:23 | Day surgery (SDC) | payer MEDICAID ==
[~2023-09-19] VITALS: Ht 170.2 cm; Wt 90.1 kg
[~2023-09-19 10:23] MED LIST changes: +ONDA4TAB12 PO
[2023-09-19] MEDS ORDERED: LACO50TA2 PO (10:51)
[2023-09-19 10:54] VITALS: BP 115/72; PULSE 87; RESP 17
[2023-09-19] MEDS ORDERED: MIDAZolam 1 MG/ML 5ML VIAL ONE (11:49)
[2023-09-19] MEDS ORDERED: fentaNYL/PF 50MCG/1 ML 2ML syringe ONE (11:49)
[2023-09-19] MEDS ORDERED: diphenhydrAMINE 50 mg/ml inj ONE (11:50)
[2023-09-19 12:10] VITALS: BP 98/62; PULSE 74; RESP 16; O2SAT 98
[2023-09-19 12:20] VITALS: BP 93/58; PULSE 74; RESP 16; O2SAT 98
[2023-09-19 12:30] VITALS: BP 97/54; PULSE 72; RESP 17; O2SAT 97
[2023-09-19 12:40] VITALS: BP 101/56; PULSE 70; RESP 16; O2SAT 98
[2023-09-19] MEDS ORDERED: ONDA4TAB12 PO (15:14)
[2023-09-19] MEDS ORDERED: ATOG30TA (15:22)
[2023-09-19] MEDS ORDERED: ZOLP10TA (15:22)
[2023-09-19] MEDS ORDERED: METO50TA16 PO (15:22)
[2023-09-19] MEDS ORDERED: GABA300T28 (15:22)
[2023-09-19] MEDS ORDERED: HYDR50TA65 PO (15:22)
[2023-09-19] MEDS ORDERED: LAMO100T65 PO (15:26)
== END 2023-09-19 12:50 | disposition home or self-care (01) ==
LOC: GI LAB 10:23
PROVIDERS: ATTEND Internal Medicine Gastroenterology
DX: K52.9 Noninfective gastroenteritis and colitis, unspecified (principal); K92.1 Melena; E11.9 Type 2 diabetes mellitus without complications; I48.91 Unspecified atrial fibrillation; G40.909 Epilepsy, unspecified, not intractable, without status epilepticus
CPT/HCPCS: 45378; J1200; J2250; J3010; J7030; Z7512; 99152; A4620

== ENCOUNTER 2023-09-20 11:53 | Day surgery (SDC) | payer MEDICAID ==
[~2023-09-20] VITALS: Ht 170.2 cm; Wt 91.5 kg
[2023-09-20] VITALS (9 sets, daily range): BP systolic 106–122; BP diastolic 63–72; PULSE 64–80; RESP 14–16; TEMP 98.1; O2SAT 94–98
[2023-09-20] MEDS: DOCUMENT DATE & TIME OF BETA-BLOCKER PO ONE (05:30)
[~2023-09-20 11:53] MED LIST changes: -APRE30TA5 PO; +ATOG30TA; -BUPR1PAT23 TOP; -CYCL-1 PO; -EREN70AU SQ; +GABA300T28; +HYDR50TA65 PO; +LACO50TA2 PO; +LAMO100T65 PO; +METO50TA16 PO; -PIOG15TA67 PO; -PRAZ2CAP2 PO; -PREG50CA PO; -PROP10TA10 PO; -PROP20TA6 PO; -QUET200T PO; +ZOLP10TA
[2023-09-20 13:31] LABS: BASOPHILS % (AUTO) 0.7 % (0-1); EOSINOPHILS # (AUTO) 0.6 X10'3 (0-0.9); EOSINOPHILS % (AUTO) 9.6 % (0-6); LYMPHOCYTES # (AUTO) 2.3 X10'3 (1.1-4.8); LYMPHOCYTES % (AUTO) 35.2 % (21-51); MEAN CORPUSCULAR HEMOGLOBIN 29.8 PG (27.0-31.0); MEAN CORPUSCULAR HGB CONC 33.9 g/dL (33.0-36.5); MEAN CORPUSCULAR VOLUME 87.8 FL (78-98); MEAN PLATELET VOLUME 7.8 FL (7.4-10.4); MONOCYTES # (AUTO) 0.5 X10'3 (0-0.9); MONOCYTES % (AUTO) 7.6 % (2-12); NEUTROPHILS # (AUTO) 3.1 X10'3 (1.8-7.7); NEUTROPHILS % (AUTO) 46.9 % (42-75); PRE OP HEMATOCRIT 39.2 % (35.0-45.0); PRE OP HEMOGLOBIN 13.3 g/dL (12.0-16.0); PRE OP PLATELET COUNT 281 X10'3 (140-440); PRE OP WHITE BLOOD COUNT 6.6 10'3 (4.8-10.8); RED BLOOD COUNT 4.47 X10'6 (4.20-5.60); RED CELL DISTRIBUTION WIDTH 12.2 % (11.5-14.5)
[2023-09-20] MEDS: ringers solution, lacted 1,000 ML IV SCH (13:36)
[2023-09-20] MEDS: famotidine 20mg tablet PO ONE (13:37)
[2023-09-20 13:45] LABS: ALBUMIN 3.6 G/DL (3.4-5.0); ALBUMIN/GLOBULIN RATIO 0.9 (1.1-1.5); ALKALINE PHOSPHATASE 37 IU/L (46-116); BLOOD UREA NITROGEN 10 MG/DL (7-18); BUN/CREATININE RATIO 13.7 (10.0-20.0); CALCIUM 8.5 MG/DL (8.5-10.1); CHLORIDE 104 MMOL/L (99-107); CREATININE 0.73 MG/DL (0.40-0.90); PRE OP ALT 34 U/L (30-65); PRE OP ANION GAP 12 (8-16); PRE OP AST 32 U/L (10-37); PRE OP BILIRUB, TOTAL 0.3 MG/DL (0.0-1.0); PRE OP GLUCOSE 140 MG/DL (70-104); PRE OP SODIUM 138 MMOL/L (135-145); TOTAL CARBON DIOXIDE 22.3 MMOL/L (24-32); TOTAL PROTEIN 7.5 G/DL (6.4-8.2); eCRCL 99 ML/MIN; eGFR 88 ML/MIN
[2023-09-20 14:08] LABS: PRE OP POTASSIUM 3.3 MMOL/L (3.4-5.1)
[2023-09-20] MEDS ORDERED: glucagon, human recombinant 1mg kit ONE (14:12)
[2023-09-20] MEDS: acetaminophen 1,000mg/100ml IV 100 ML IV ONE (14:15)
[2023-09-20] MEDS ORDERED: labetalol 20mg/4ml (5mg/ml) syringe IV PRN (14:15)
[2023-09-20] MEDS ORDERED: ringers solution, lacted 1,000 ML IV SCH (14:15)
[2023-09-20] MEDS ORDERED: HYDROmorphone/PF 0.2 MG/ML SYRINGE IV PRN (14:15)
[2023-09-20] MEDS ORDERED: fentaNYL/PF 50MCG/1 ML 2ML syringe IV PRN ×2 (14:15)
[2023-09-20] MEDS ORDERED: proCHLORperazine 10 MG/2 ml inj IV PRN (14:15)
[2023-09-20] MEDS ORDERED: hydrALAZINE 20mg/ml inj. IV PRN (14:15)
[2023-09-20] MEDS ORDERED: ondansetron/PF 4mg/2ml inj IV PRN (14:15)
[2023-09-20] MEDS ORDERED: sevoflurane 250ml liquid IH ONE (14:36)
[2023-09-20] MEDS ORDERED: fentaNYL/PF 50MCG/1 ML 2ML syringe ONE (14:42)
[2023-09-20] MEDS ORDERED: LIDOcaine 2% (20mg/ml) 5ml vial ONE (14:57)
[2023-09-20] MEDS ORDERED: dexamethasone sod phosphate 4mg/ml inj. ONE (14:57)
[2023-09-20] MEDS ORDERED: ondansetron/PF 4mg/2ml inj ONE (14:57)
[2023-09-20] MEDS ORDERED: propofol inj 20 ML IV ONE (14:57)
[2023-09-20] MEDS ORDERED: midazolam 1 mg/ML 2ml injection ONE (14:57)
== END 2023-09-20 16:20 | disposition home or self-care (01) ==
LOC: PAS 11:53
PROVIDERS: ATTEND Internal Medicine Gastroenterology
DX: K92.1 Melena (principal); I48.91 Unspecified atrial fibrillation; E11.9 Type 2 diabetes mellitus without complications; G40.909 Epilepsy, unspecified, not intractable, without status epilepticus; Z79.899 Other long term (current) drug therapy; Q21.12 Patent foramen ovale; Z87.891 Personal history of nicotine dependence
CPT/HCPCS: 36415; 45378; 80053; 82948; 85025; 93005; J0131; J1100; J2250; J2405; J2704; J3010; J3490; J7120; Z7506; Z7512; A4618; J1610